=== PATIENT | male | born 1995 | race Asian ===

== ENCOUNTER → 2021-06-08 | Outpatient (CLI) | payer OTHER | LOC: LAB 16:24 → LAB SHORT 16:24 | DX: Z20.822 Contact with and (suspected) exposure to COVID-19 (principal) | CPT/HCPCS: U0003 ==

== ENCOUNTER → 2023-04-24 | Outpatient (CLI) | payer OTHER ==
[2023-04-24 19:29] LABS: Microalb/Creat Ratio UR, Rand 33.931 mg/g (0.000-30.000); Microalbumin, Random Urine 98.4 mg/L (0.000-20.000)
== END | disposition home or self-care (01) ==
LOC: LAB 16:11 → LAB SHORT 16:11
PROVIDERS: Family Medicine
DX: I10 Essential (primary) hypertension (principal)
CPT/HCPCS: 82043; 82570

== ENCOUNTER → 2024-04-15 | Outpatient (CLI) | payer BC ==
[2024-04-15 20:34] LABS: Microalb/Creat Ratio UR, Rand 7.368 mg/g (0.000-30.000); Microalbumin, Random Urine 12.6 mg/L (0.000-20.000)
== END | disposition home or self-care (01) ==
LOC: LAB 16:55 → LAB SHORT 16:55
PROVIDERS: Nurse Practitioner Family
DX: I10 Essential (primary) hypertension (principal)
CPT/HCPCS: 82043; 82570

== ENCOUNTER → 2024-08-12 | Outpatient (CLI) | payer BC ==
[2024-08-12 21:10] LABS: Microalb/Creat Ratio UR, Rand 7.418 mg/g (0.000-30.000); Microalbumin, Random Urine 13.5 mg/L (0.000-20.000)
== END | disposition home or self-care (01) ==
LOC: LAB SHORT 18:53
PROVIDERS: Nurse Practitioner Family
DX: R82.90 Unspecified abnormal findings in urine (principal)
CPT/HCPCS: 82043; 82570

== ENCOUNTER 2025-01-24 11:20 | Day surgery (SDC) | payer BC ==
[~2025-01-24] VITALS: Ht 165.1 cm; Wt 88.7 kg
[~2025-01-24 11:20] MED LIST: Budeprion Xl300 MG PO; CeFAZolin Sodium 2,000 MG VIAL ONE; Dexamethasone Sod Phos 10 MG/ML 1ML VIAL ONE; FentaNYL Citrate 50 MCG/ML 2 ML Injection ONE; Ketorolac Tromethamine 30mg Vial ONE; LOSA25 PO; MONT10T PO; Midazolam HCl 1MG / ML 2ML Vial ONE; NAPROXEN250 M1 PO; Ondansetron HCl 2 MG / ML 2ML Vial ONE; Tranexamic Acid 100 ML IV ONE; ZYRTEC10 M2 PO
[2025-01-24] MEDS ORDERED: LISI10 (11:49)
--- NOTE | 2025-01-24 12:53 | NUR ---
01/24/25 1253 Vandana Marcus BLOCK TIMEOUT AT 1248 BLOCK START AT 1249. BLOCK END AT 1251. PT TOLERATED WELL. PULSE OX MONITOR WAS ON PT DURING PROCEDURE
[2025-01-24] MEDS ORDERED: HYDROmorphone HCl/Pf 1MG SYR ONE (14:43)
--- NOTE | 2025-01-24 15:45 | NUR ---
01/24/25 1545 Delisa Patterson [facility] PACK APPLIED
[2025-01-24] MEDS ORDERED: Ondansetron HCl 2 MG / ML 2ML Vial ONE (16:09)
[2025-01-24 16:16] VITALS: BP 116/63
== END 2025-01-24 16:53 | disposition home or self-care (01) ==
LOC: ORSCSDS 11:20
PROVIDERS: Orthopaedic Surgery Sports Medicine
PROC: 0RQJ4ZZ Repair Right Shoulder Joint, Percutaneous Endoscopic Approach (ICD-10-PCS; principal; 2025-01-24 12:45)
DX: S43.431A Superior glenoid labrum lesion of right shoulder, initial encounter (principal); I25.10 Atherosclerotic heart disease of native coronary artery without angina pectoris; J45.909 Unspecified asthma, uncomplicated; I10 Essential (primary) hypertension; Z79.899 Other long term (current) drug therapy
CPT/HCPCS: C1713; J0165; J0690; J1100; J1171; J1885; J2250; J2405; J2704; J3010; J7120

== ENCOUNTER 2025-05-15 07:05 | Day surgery (SDC) | payer BC ==
[~2025-05-15] VITALS: Ht 165.1 cm; Wt 92.1 kg
[~2025-05-15 07:05] MED LIST changes: -CeFAZolin Sodium 2,000 MG VIAL ONE; -Dexamethasone Sod Phos 10 MG/ML 1ML VIAL ONE; -FentaNYL Citrate 50 MCG/ML 2 ML Injection ONE; -Ketorolac Tromethamine 30mg Vial ONE; +LISI10; -Midazolam HCl 1MG / ML 2ML Vial ONE; -Ondansetron HCl 2 MG / ML 2ML Vial ONE; +Oxymetazoline 0.05% Nasal Relief Spray 15mL BTL ONE; -Tranexamic Acid 100 ML IV ONE
[2025-05-15] MEDS ORDERED: GLYC2 PO (07:39)
[2025-05-15] MEDS ORDERED: Tranexamic Acid 100 ML IV ONE (08:00)
[2025-05-15] MEDS ORDERED: Midazolam HCl 1MG / ML 2ML Vial ONE (08:44)
[2025-05-15] MEDS ORDERED: FentaNYL Citrate 50 MCG/ML 2 ML Injection ONE ×2 (08:44→09:52)
[2025-05-15] MEDS ORDERED: Dexamethasone Sod Phos 10 MG/ML 1ML VIAL ONE (08:54)
[2025-05-15] MEDS ORDERED: Ondansetron HCl 2 MG / ML 2ML Vial ONE ×2 (08:54→09:13)
[2025-05-15 10:49] VITALS: BP 141/98
== END 2025-05-15 10:49 | disposition home or self-care (01) ==
LOC: ORSCSDS 07:05
PROVIDERS: Otolaryngology
PROC: 0CBPXZZ Excision of Tonsils, External Approach (ICD-10-PCS; principal; 2025-05-15 08:45)
DX: J35.8 Other chronic diseases of tonsils and adenoids (principal); I10 Essential (primary) hypertension; J45.909 Unspecified asthma, uncomplicated; Z79.899 Other long term (current) drug therapy
CPT/HCPCS: 88304; A9270; J1100; J2250; J2405; J2704; J3010